=== PATIENT | male | born 1995 | race Caucasian/White ===

== ENCOUNTER 2020-01-16 16:28 | Emergency (ER) | payer SELFPAY ==
[2020-01-16 16:36] VITALS: BP 126/88; PULSE 67; RESP 16; TEMP 37.4; O2SAT 99
--- NOTE | 2020-01-16 16:39 | ED.SKABFB ---
HPI - Skin/Abscess/Foreign Bdy General Chief complaint: Skin/Abscess/Foreign Body Stated complaint: sun burn Time Seen by Provider: 01/16/20 16:39 Source: patient and RN notes reviewed History of Present Illness HPI narrative: Patient is a 24-year-old male who presents the urgent care with complaints of a sunburn. Patient states that his employer is forcing him to get it evaluated considering he did obtain a sunburn while at work. 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 Patient states that he did apply sunscreen to the rest of his body but forgot the back of his neck and chest. Patient states that he obtained the sunburn approximately 3 days ago and he has been using aloe on the area with mild improvement. No other acute complaints. No acute distress noted. Patient aware of plan of care. Related Data Allergies Allergy/AdvReac Type Severity Reaction Status Date / Time No Known Allergies Allergy Verified 01/16/20 16:41 Review of Systems Review of Systems: Narrative: CONSTITUTIONAL: Denies fever, chills, or sweats. EYES: Denies visual changes, redness, or discharge. ENT: Denies rhinorrhea, congestion, sore throat, or otalgia. CARDIOVASCULAR: Denies chest pain, palpitations, or edema. RESPIRATORY: Denies cough or dyspnea. GASTROINTESTINAL: Denies abdominal pain, nausea, vomiting, or diarrhea. GENITOURINARY: Denies dysuria or hematuria. SKIN: Reports of a sunburn to bilateral lower arms as well as to the back of the neck and chest MUSCULOSKELETAL: Denies back pain, joint pain, or myalgia. NEUROLOGIC: Denies headache, numbness, or weakness. All other systems reviewed are negative, except as documented in HPI. PMFSH Comments At the time of my signature, I reviewed and agree with the nursing past medical, surgical, social, and family history. There is no relevant family history pertinent to the patient complaint. Exam Narrative: Exam Narrative: GENERAL: This is a well-nourished, well-developed patient, in no apparent distress. HEAD: normocephalic, atraumatic. EYES: PERRL. Sclera clear/white. Vision is grossly intact. EARS: External ears normal NOSE: External nose normal with no obvious nasal discharge, nares without redness, no rhinorrhea. THROAT: Mucous membranes moist NECK: Neck supple SKIN: First-degree camara to lower bilateral arms and chest, with second-degree burn to the back of the neck with notable blistering NEURO: awake, alert, and oriented to person, place and time. There were no obvious focal neurologic abnormalities. EXTREMITIES: No clubbing, cyanosis, or edema. Course Vital Signs Vital signs: Vital Signs Temperature 99.3 F 01/16/20 16:36 Pulse Rate 67 01/16/20 16:36 Respiratory Rate 16 01/16/20 16:36 Blood Pressure 126/88 01/16/20 16:36 Pulse Oximetry 99 01/16/20 16:36 Temperature 99.3 F 01/16/20 16:36 Pulse Rate 67 01/16/20 16:36 Respiratory Rate 16 01/16/20 16:36 Blood Pressure 126/88 01/16/20 16:36 Pulse Oximetry 99 01/16/20 16:36 Reviewed MDM - Skin/Abscess/Foreign Bdy MDM Narrative Medical decision making narrative: Advised the patient to use the Silvadene cream to the back of the neck and lower bilateral arms as needed. Use sparingly, a little bit goes a long way. Do not use cream for any longer than 5 to 7 days. May use an ice pack over a towel to the back of the neck as needed. Make sure to keep the area covered while out in the sun. In the future, make sure to use a good sunscreen and reapply as needed. Follow-up with PCP within 2 to 5 days or for worsening symptoms or failure to improve. Differential Diagnosis Differential diagnosis: Likely abscess of skin or subcutaneous tissue, cellulitis, impetigo and contact dermatitis Critical Care Time Critical Care Time Critical Care Time: No Discharge Plan Discharge Clinical Impression: Sunburn Patient Disposition: H
== END 2020-01-16 16:50 | disposition home or self-care (01) ==
PROVIDERS: Emergency Provider Nurse Practitioner Family; PCP Family Medicine
DX: L55.9 Sunburn, unspecified (principal)
CPT/HCPCS: 99213; G0463